=== PATIENT | male | born 1970 | race American Indian/Alaskan Native ===

== ENCOUNTER 2021-05-12 20:06 | Emergency (ER) | payer MEDICARE ==
[2021-05-12] MEDS ORDERED: CALCIUM CHLORIDE 1,000 MG/10 ML SYRINGE IV ONE (20:14)
--- NOTE | 2021-05-12 21:09 | Emergency Department Report ---
ED CPR HPI - General Chief Complaint: Cardiac Arrest/CPR Stated Complaint: CARDIAC ARREST Time Seen by Provider: 05/12/21 20:29 Source: family, EMS (Verbal report received from emergency medical services. EMS documentation not available at time of chart dictation ), RN notes reviewed, old records reviewed Mode of arrival: Stretcher Limitations: Altered Mental Status, Physical Limitation - History of Present Illness Initial Comments: The patient is a 51-year-old gentleman. He is not known to myself previously. He is brought to the hospital by emergency medical services as an [id number] nontraumatic cardiac arrest. Patient arrives intubated, receiving active CPR, with a GCS of 3T. History entirely obtained from EMS. EMS reports the patient had a seizure at home in bed. They then state that he stopped breathing. They report 911 was contacted, and family did not initiate CPR. Upon EMS initial arrival, the patient is not breathing, and does not have a pulse. EMS intubated the patient, and started high-quality CPR. Patient received epinephrine x4, and was shocked x2. EMS estimates approximately 8 minutes to their arrival, from the time 911 was called. They reports no bystander CPR. EMS further reports from the time of their first initial medical contact with this patient, to the time of emergency room arrival was approximately 1/2-hour. During that time period, the patient did not have a pulse, and required aggressive ACLS interventions. No Accu-Chek obtained in the field. ER Accu-Chek 180 Upon arrival to this emergency room, the patient has a GCS of 3T. He is receiving high-quality CPR. His pupils are dilated and do not react to light. Standard ACLS interventions are continued. Please see nursing code sheet. After a prolonged resuscitation here in the emergency room, patient was found to be in asystole. Serial bedside ultrasound did not demonstrate coordinated cardiac ventricular activity. Given prolonged downtime, evidence of brain , lack of coordinated ventricular activity, inability to obtain pulse, medical futility, resuscitative efforts are subsequently terminated. Family is at the bedside when efforts are terminated and the patient is pronounced . Complaint: stopped breathing, seizure -: minute(s) Place: home Bystander CPR Performed: No Initial Findings in the Field: no pulse, VTACH/VFIB ROSC in the Field: No Associated Injuries: No Treatments Prior to Arrival: intubation, chest compressions, defribrillated shocks # (2), epinephrine mgs # (4) ED Review of Systems ROS: Stated complaint: CARDIAC ARREST Other details as noted in HPI Comment: Unobtainable due to pts medical conditions ED Physical Exam - General Limitations: Altered Mental Status, Physical Limitation General appearance: other (GCS of 3T) - Head Head exam: Present: atraumatic, normocephalic - Eye Eye exam: Absent: normal appearance (Pupils are fixed, dilated, do not react to light) - ENT ENT exam: Present: normal exam, mucous membranes moist, normal external ear exam (Endotracheal tube noted in the oropharynx) - Neck Neck exam: Present: normal inspection. Absent: tenderness, meningismus - Respiratory Respiratory exam: Present: other (No breath sounds without [id number] ventilation). Absent: respiratory distress - Cardiovascular Cardiovascular Exam: Present: other (The patient is pulseless). Absent: regular rate, normal rhythm, systolic murmur, diastolic murmur, rubs, gallop - GI/Abdominal GI/Abdominal exam: Present: soft. Absent: distended, tenderness, guarding, rebound, rigid, pulsatile mass - Rectal Rectal exam: Present: deferred - Extremities Exam Extremities exam: Present: normal inspection, other (2+ pulses noted in the bilateral upper and lower extremities. There is no palpable cord. negative Homans sign. Muscular compartments are soft. The pelvis is stable.). Absent: pedal edema, calf tenderness - Back Exam Back exam: Present: normal inspection - Neurological Exam Neurological exam: Present: altered, other (Nonverbal, intubated, GCS of 3T) - Psychiatric Psychiatric exam: Present: other (The patient is nonverbal) - Skin Skin exam: Present: warm, dry, intact, normal color. Absent: rash ED Medical Decision Making - Medical Decision Making Differential diagnosis, including but not limited to: Seizure, intracranial hemorrhage, pneumonia, urinary tract infection, acute coronary syndrome, pulmonary embolism Critical Care Time: Yes Critical care time in (mins) excluding proc time.: 35 Critical care attestation.: If time is entered above; I have spent that time in minutes in the direct care of this critically ill patient, excluding procedure time. ED Disposition Clinical Impression: Cardiac arrest, History of seizure Disposition: DC-20 Is pt being admited?: No Does the pt Need Aspirin: No Condition: Undetermined
== END 2021-05-13 02:30 ==
LOC: ED 20:06
DX: I46.9 Cardiac arrest, cause unspecified (principal); R56.9 Unspecified convulsions
CPT/HCPCS: 31500; 82962; 92950; 99285; 99291